=== PATIENT | female | born 1995 | race Caucasian/White ===

== ENCOUNTER 2016-11-06 17:48 | Emergency (ER) | payer OTHER | END 2016-11-06 18:25 | disposition left against medical advice (07) | LOC: ER 17:48 | DX: Z53.21 Procedure and treatment not carried out due to patient leaving prior to being seen by health care provider (principal) ==

== ENCOUNTER 2017-10-02 18:53 | Outpatient (CLI) | payer OTHER ==
[2017-10-02 19:29] LABS: APPEARANCE,URINE CLEAR; BILIRUBIN,URINE NEGATIVE (NEGATIVE); COLOR,URINE STRAW; GLUCOSE, URINE NEGATIVE (NEGATIVE); KETONES,URINE NEGATIVE (NEGATIVE); LEUKOCYTE ESTERASE,URINE SMALL (NEGATIVE); NITRITE,URINE NEGATIVE (NEGATIVE); PROTEIN,URINE NEGATIVE (NEGATIVE); URINE SPECIFIC GRAVITY 1.002; UROBILINOGEN,URINE NEGATIVE mg/dL (<2.0)
[2017-10-02 19:41] LABS: URINE AMPHETAMINES SCREEN NEGATIVE; URINE BARBITURATES SCREEN NEGATIVE; URINE BENZODIAZEPINES SCREEN NEGATIVE; URINE COCAINE SCREEN NEGATIVE; URINE MARIJUANA (THC) SCREEN NEGATIVE; URINE METHADONE SCREEN NEGATIVE; URINE PHENCYCLIDINE SCREEN NEGATIVE
== END 2017-10-02 20:23 | disposition home or self-care (01) ==
LOC: LC 18:53
PROVIDERS: ATTEND Obstetrics & Gynecology
PROC: 4A1HXCZ Monitoring of Products of Conception, Cardiac Rate, External Approach (ICD-10-PCS; principal; 2017-10-02)
DX: O47.03 False labor before 37 completed weeks of gestation, third trimester (principal); Z3A.29 29 weeks gestation of pregnancy
CPT/HCPCS: 80307; 81001

== ENCOUNTER 2017-11-07 12:08 | Outpatient (CLI) | payer OTHER ==
[2017-11-07 13:15] LABS: URINE AMPHETAMINES SCREEN NEGATIVE; URINE BARBITURATES SCREEN NEGATIVE; URINE BENZODIAZEPINES SCREEN NEGATIVE; URINE COCAINE SCREEN NEGATIVE; URINE MARIJUANA (THC) SCREEN NEGATIVE; URINE METHADONE SCREEN NEGATIVE; URINE PHENCYCLIDINE SCREEN NEGATIVE
[2017-11-07 13:19] LABS: APPEARANCE,URINE CLEAR; BILIRUBIN,URINE NEGATIVE (NEGATIVE); COLOR,URINE STRAW; GLUCOSE, URINE NEGATIVE (NEGATIVE); KETONES,URINE NEGATIVE (NEGATIVE); LEUKOCYTE ESTERASE,URINE TRACE (NEGATIVE); NITRITE,URINE NEGATIVE (NEGATIVE); PROTEIN,URINE NEGATIVE (NEGATIVE); URINE SPECIFIC GRAVITY 1.002; UROBILINOGEN,URINE NEGATIVE mg/dL (<2.0)
== END 2017-11-07 14:51 | disposition home or self-care (01) ==
LOC: LC 12:08
PROVIDERS: ATTEND Obstetrics & Gynecology
PROC: 4A1HXCZ Monitoring of Products of Conception, Cardiac Rate, External Approach (ICD-10-PCS; principal; 2017-11-07)
DX: O36.8130 Decreased fetal movements, third trimester, not applicable or unspecified (principal); Z3A.35 35 weeks gestation of pregnancy
CPT/HCPCS: 59025; 80307; 81001

== ENCOUNTER 2017-11-15 19:01 | Outpatient (CLI) | payer OTHER ==
[2017-11-15 19:41] LABS: APPEARANCE,URINE SLIGHTLY-CLOUDY; BILIRUBIN,URINE NEGATIVE (NEGATIVE); COLOR,URINE YELLOW; GLUCOSE, URINE NEGATIVE (NEGATIVE); KETONES,URINE NEGATIVE (NEGATIVE); LEUKOCYTE ESTERASE,URINE MODERATE (NEGATIVE); NITRITE,URINE NEGATIVE (NEGATIVE); PROTEIN,URINE 30 mg/dL (NEGATIVE); URINE SPECIFIC GRAVITY 1.024; UROBILINOGEN,URINE NEGATIVE mg/dL (<2.0)
[2017-11-15 20:04] LABS: URINE AMPHETAMINES SCREEN NEGATIVE; URINE BARBITURATES SCREEN NEGATIVE; URINE BENZODIAZEPINES SCREEN NEGATIVE; URINE COCAINE SCREEN NEGATIVE; URINE MARIJUANA (THC) SCREEN NEGATIVE; URINE METHADONE SCREEN NEGATIVE; URINE PHENCYCLIDINE SCREEN NEGATIVE
== END 2017-11-15 20:31 | disposition home or self-care (01) ==
LOC: LC 19:01
PROVIDERS: ATTEND Obstetrics & Gynecology Gynecology
PROC: 4A1HXCZ Monitoring of Products of Conception, Cardiac Rate, External Approach (ICD-10-PCS; principal; 2017-11-15)
DX: O99.283 Endocrine, nutritional and metabolic diseases complicating pregnancy, third trimester (principal); E86.0 Dehydration; Z3A.36 36 weeks gestation of pregnancy
CPT/HCPCS: 59025; 80307; 81001

== ENCOUNTER 2018-12-05 09:58 | Observation (INO) | payer OTHER ==
[2018-11-28 10:18] LABS: HEMATOCRIT 41.7 % (36.0-47.0); HEMOGLOBIN 13.9 g/dL (12.0-15.5); MEAN CORPUSCULAR HEMOGLOBIN 25.5 pg (27.0-33.4); MEAN CORPUSCULAR HGB CONC 33.4 g/dL (32.0-36.0); MEAN CORPUSCULAR VOLUME 77 fl (80-97); PLATELET COUNT 296 10^3/uL (150-450); RED BLOOD COUNT 5.45 10^6/uL (3.72-5.28); RED CELL DISTRIBUTION WIDTH 15.9 % (11.5-14.0); WHITE BLOOD COUNT 6.7 10^3/uL (4.0-10.5)
[2018-11-28 10:24] LABS: APPEARANCE,URINE SLIGHTLY-CLOUDY; BILIRUBIN,URINE NEGATIVE (NEGATIVE); COLOR,URINE YELLOW; GLUCOSE, URINE NEGATIVE (NEGATIVE); KETONES,URINE NEGATIVE (NEGATIVE); LEUKOCYTE ESTERASE,URINE NEGATIVE (NEGATIVE); NITRITE,URINE NEGATIVE (NEGATIVE); PROTEIN,URINE NEGATIVE (NEGATIVE); URINE SPECIFIC GRAVITY 1.021; UROBILINOGEN,URINE NEGATIVE mg/dL (<2.0)
[2018-11-28 10:44] LABS: ANION GAP 9 (5-19); BLOOD UREA NITROGEN 11 mg/dL (7-20); CALCIUM 9.7 mg/dL (8.4-10.2); CARBON DIOXIDE 28 mmol/L (22-30); CHLORIDE 104 mmol/L (98-107); GLUCOSE 96 mg/dL (75-110); POTASSIUM 4.8 mmol/L (3.6-5.0); SODIUM 140.9 mmol/L (137-145)
--- NOTE | 2018-11-28 12:59 | EKG REPORT ---
SEVERITY:- OTHERWISE NORMAL ECG - SINUS TACHYCARDIA BORDERLINE LEFT AXIS DEVIATION : Confirmed by: Leda Motta MD 28-Nov-2018 12:59:01
[~2018-12-05 09:58] MED LIST: CEFAZOLIN 2 GM/D5W RTU 2 GM/50 ML RTUPB IV PRN; GABAPENTIN 300 MG CAPSULE PO PRN; LACTATED RINGERS 1000 ML IV PRN; LIDOCAINE 0.5% INJ-PF (5 MG/ML) 50 ML SDV SUBCUT PRN
[2018-12-05] MEDS ORDERED: CEFAZOLIN 2 GM/D5W RTU 0 GM/0 ML RTUPB IV ONE (11:37)
[2018-12-05] MEDS ORDERED: GABAPENTIN 300 MG CAPSULE ONE (11:37)
[2018-12-05] MEDS ORDERED: SUCCINYLCHOLINE CHLORIDE INJ 200 MG/10 ML VIAL ONE (11:39)
[2018-12-05] MEDS ORDERED: DEXAMETHASONE SOD PHOSPHATE INJ 4 MG/1 ML VIAL ONE (11:39)
[2018-12-05] MEDS ORDERED: ONDANSETRON HCL INJ/PF 4 MG/2 ML SDV ONE (11:39)
[2018-12-05] MEDS ORDERED: ROCURONIUM BROMIDE INJ 50 MG/5 ML VIAL IV ONE (11:39)
[2018-12-05] MEDS ORDERED: KETOROLAC TROMETHAMINE 60 MG/2 ML SDV ONE (11:39)
[2018-12-05] MEDS ORDERED: GENTAMICIN SULFATE 150 MG in DEXTROSE 5%-WATER 100 ML IV PRN (13:15)
[2018-12-05] MEDS ORDERED: CLINDAMYCIN 900 MG/D5W RTU 900 MG/50 ML RTUPB IV PRN (13:16)
[2018-12-05] MEDS ORDERED: CLINDAMYCIN 900 MG/D5W RTU 900 MG/50 ML RTUPB IV ONE (13:19)
[2018-12-05] MEDS ORDERED: PROPOFOL INJ 200 MG/20 ML VIAL IV ONE (13:26)
[2018-12-05] MEDS ORDERED: MIDAZOLAM 2 MG/2 ML INJ ONE (13:26)
[2018-12-05] MEDS ORDERED: HYDROMORPHONE HCL INJ/PF 2 MG/ML AMPULE ONE (13:26)
[2018-12-05] MEDS ORDERED: FENTANYL CITRATE INJ/PF 100 MCG/2 ML AMPUL ONE (13:26)
[2018-12-05] MEDS ORDERED: ACETAMINOPHEN 1,000 MG/100 ML RTUPB IV ONE (13:26)
--- NOTE | 2018-12-05 13:29 | EKG REPORT ---
SEVERITY:- OTHERWISE NORMAL ECG - SINUS RHYTHM BORDERLINE LEFT AXIS DEVIATION : Confirmed by: Jonathan Rodriguez MD 05-Dec-2018 13:28:34
[2018-12-05] MEDS ORDERED: BUPIVACAINE HCL 0.5 % INJ/PF 30 ML SDV ONE (13:34)
[2018-12-05] MEDS ORDERED: MORPHINE SULFATE 10 MG/ML INJ IV PRN (14:34)
[2018-12-05] MEDS ORDERED: ONDANSETRON HCL INJ/PF 4 MG/2 ML SDV IV PRN ×2 (14:34→17:47)
[2018-12-05] MEDS ORDERED: PROMETHAZINE HCL INJ 25 MG/1 ML VIAL IV PRN (14:34)
[2018-12-05] MEDS ORDERED: MEPERIDINE HCL/PF INJ 25 MG/1 ML DISP.SYRIN IV PRN (14:34)
[2018-12-05] MEDS ORDERED: FENTANYL CITRATE INJ/PF 100 MCG/2 ML AMPUL IV PRN ×3 (14:34)
--- NOTE | 2018-12-05 16:25 | Discharge Summary ---
Discharge Summary (SDC) - Discharge Final Diagnosis: Right adnexal mass Endometriosis Date of Surgery: 12/05/18 Discharge Date: 12/05/18 Condition: Good Forms: Post Operative Treatment or Instructions: Robot assisted laparoscopic right oophorectomy Posterior colpotomy and repair Laparoscopic fulgeration of endometriosis Prescriptions: Acetaminophen [Tylenol Extra Strength 500 mg Tablet] 1 tab PO Q8 PRN #30 tab PRN Reason: Pain Scale Of 3 Ibuprofen [Motrin 800 mg Tablet] 800 mg PO Q8H PRN #60 tab PRN Reason: Pain Scale Of 3 Oxycodone HCl [Roxicodone] 5 mg PO Q4H #20 tablet Referrals: SANA HILL MD [NO LOCAL MD] - (For concerns about your recovery, fevers >100.4, heavy bleeding, severe pain not controlled by pain meds, call RN at [facility] at [phone] or [phone]. For follow up appt call Mrs Mariee at [phone]) Discharge Diet: As Tolerated Respiratory Treatments at Home: Deep Breathing/Coughing Discharge Activity: Activity As Tolerated, Balance Activity w/Rest, No Lifting/Push/Pulling, Pelvic Rest, Slowly Increase Activity Report the Following to Your Physician Immediately: Vomiting, Fever over 101 Degrees, Unusual Bleeding, Drainage-Foul Smelling, Increased Vaginal Bleed, Wheezing, IV Site Infection Signs, Urinary Infection Signs
[2018-12-05] MEDS ORDERED: OXYCODONE-ACETAMINOPHEN 5-325 MG TABLET PO PRN (17:47)
[2018-12-05] MEDS ORDERED: IBUPROFEN 800 MG TABLET ONE (19:19)
[2018-12-05] MEDS: IBUPROFEN 800 MG TABLET PO PRN (19:24)
[2018-12-06] MEDS: IBUPROFEN 800 MG TABLET PO PRN (05:59)
[2018-12-06 09:16] VITALS: BP 117/75
--- NOTE | 2019-01-16 12:34 | OPERATIVE REPORT E ---
Operative Report NAME: MARIA ISABEL COLLINS : 1995 AGE: 23Y DATE OF SURGERY: 12/05/2018 ROOM: 225 PREOPERATIVE DIAGNOSIS: Right ovarian mass. POSTOPERATIVE DIAGNOSIS: Right ovarian mass. PROCEDURE: Robotic-assisted total laparoscopic right oophorectomy with posterior colpotomy and repair. SURGEON: SANA HILL M.D. ANESTHESIA: General. COMPLICATIONS: None. ESTIMATED BLOOD LOSS: 50 mL. URINE OUTPUT: Clear at the end of the procedure. SPECIMENS: Right ovary and adnexal mass. FINDINGS: Right ovary enlarged with an approximately 5 cm mass noted to have irregularity and hair-like tissue visible. The fallopian tubes appeared normal, as did the uterus. INDICATIONS: This patient has a history of right pelvic pain and enlarged ovarian mass which has not resolved with monitoring by ultrasound. After discussing the risks and benefits and alternatives and testing for tumor markers, which came back not increased, and based on ultrasound appearance of the mass, we discussed that it was likely to be benign. We then discussed surgical management and alternatives, including, but not limited to, observation, open abdominal surgery, and referral to [facility]. The patient elected for the above procedure. PROCEDURE: After the patient was properly consented, she was taken to the operating room where general anesthesia was found to be adequate. She was transferred to a dorsal lithotomy position using adjustable Venkata stirrups, prepped and draped in the usual sterile fashion. A surgical timeout was held. Austin catheter was placed in the bladder and a VCare medium-sized uterine manipulator was placed in the typical fashion. Gloves were then changed and I proceeded above where 0.25% plain Marcaine local anesthetic was used to initiate local anesthesia at the umbilical site. Then, a 12 mm skin incision was made with a scalpel and a Veress needle was introduced into the peritoneal cavity. Correct placement was established by a drop in CO2 pressure to 0 mmHg. The pneumoperitoneum was established and brought to a pressure of 15 mmHg. A 12 mm bladeless trocar was advanced into the pneumoperitoneum and visualization with the camera demonstrated atraumatic entry. Slight Trendelenburg position was obtained and then subsequently we placed two right 8 mm ports and one left lateral 8 mm port following the typical routine of local anesthetic, skin incision, and placement of the port under direct visualization. Once the ports were in place the patient was put in steep Trendelenburg. The robot was docked and the instruments were placed into the robotic arms. At this point I went to the robotic console. Pelvic anatomy was inspected and the findings were noted above. The ureters were identified by peristalsis in their usual course at the pelvic brim bilaterally. Dissection began to remove the right ovary and adnexal mass using the bipolar vessel sealer and the bipolar fenestrated graspers. The ovary was dissected from the IP ligament at the site proximal to the ovary. It was then dissected free from the tubo-ovarian ligament and the utero-ovarian ligament. The specimen was placed in the posterior cul-de-sac. At this time the vessel sealer was replaced with monopolar scissors. The monopolar scissors and bipolar fenestrated graspers were used to make a posterior colpotomy between the uterosacral ligaments. Once the colpotomy was completed the uterine manipulator was removed and a large laparoscopic Endopouch was placed vaginally and opened in the pelvic cavity. The specimen was placed into the bag. The bag was closed and the specimen and bag were removed through the posterior colpotomy. The pelvis was irrigated and hemostasis was noted to be excellent. At this point the monopolar scissors were replaced with the needle combine driver and the posterior colpotomy was closed in a running fashion with the 2-0 Monocryl V-Loc suture. FloSeal agent was applied over the colpotomy. The abdomen was deflated. The robot was undocked and all instruments were removed. Next, the patient was taken out of Trendelenburg. The 12 mm incision was closed at the fascial level with 0-Vicryl suture in a [id number] fashion. The skin of all the laparoscopic ports was closed with 4-0 Monocryl in a subcuticular fashion and Dermabond dressing was applied to all of the sites. The Austin catheter was removed from the bladder and a sponge stick was inserted into the vagina to ensure there was no heavy bleeding. Hemostasis was excellent. Anesthesia was reversed. Sponge, lap, and needle counts were correct at the end of the procedure, and the patient was taken to the PACU in stable condition. DICTATING PHYSICIAN: SANA HILL M.D. [id number] Y#: [id number] ID: [id number] JOB#: [id number] ACCT: [id number] cc:SANA HILL M.D. >
== END 2018-12-06 09:20 | disposition home or self-care (01) ==
LOC: OROUT 09:58 → 2S 20:15 → OROUT 12-06 09:20
PROVIDERS: ADMIT Obstetrics & Gynecology; ATTEND Obstetrics & Gynecology
PROC: 0UJH0ZZ Inspection of Vagina and Cul-de-sac, Open Approach (ICD-10-PCS; 2018-12-05)
PROC: 0UT04ZZ Resection of Right Ovary, Percutaneous Endoscopic Approach (ICD-10-PCS; principal; 2018-12-05 12:00)
DX: D27.0 Benign neoplasm of right ovary (principal); N80.0 Endometriosis of uterus; N80.3 Endometriosis of pelvic peritoneum; Z80.41 Family history of malignant neoplasm of ovary
CPT/HCPCS: 57000; 58661; 93005 ×2; 86900; 86901; 36415 ×2; 86850; 85027; 81025; 80048; 81001; 88305 ×2; 93010 ×2; G0378 ×2; G0379; J2250; J3490 ×2; J1100; J1885; J3010; J1580; J1170; J0330; J2405; J2704; J0131; 840; J0690